=== PATIENT | male | born 1980 ===

== ENCOUNTER 2017-06-02 01:35 | Observation (INO) | payer SELFPAY ==
[2017-06-02 01:49] VITALS: O2SAT 97
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
--- NOTE | 2017-06-02 06:10 | ED PDOC ---
- ECG O2 Sat by Pulse Oximetry: 97 (RA) Medical Decision Making Medical Decision Makin Patient was transferred [place] Dr. Mendoza pending clinical sobriety. See ED-OBS for further documentation Scribe Attestation: Documented by Kranthi Palomares, acting as a scribe for Dr. Jazmine Maldonado. Provider Scribe Attestation: All medical record entries made by the Scribe were at my direction and personally dictated by me. I have reviewed the chart and agree that the record accurately reflects my personal performance of the history, physical exam, medical decision making, and the department course for this patient. I have also personally directed, reviewed, and agree with the discharge instructions and disposition. Disposition - Clinical Impression Clinical Impression: Alcohol intoxication - POA Present On Arrival: None - Disposition Referrals: [facility] [Outside] [facility] [Outside] Disposition Time: 01:58 Condition: STABLE Additional Instructions: follow up with your primary doctor in 1-2 days return to the ED with any worsening or concerning symptoms. patient is cleared for police custody Instructions: Alcohol Intoxication (ED) Forms: [employer] (Occitan) ED OBSERVATION Date of observation admission: 06/02/17 Time of observation admission: 01:58 - Observation admission statement Patient is being placed in observation because:: Pending clinical sobriety - Goals of Observation Goals of observation are:: Clinical sobriety - Progress Note Progress Note: Time: 7:00 --Patient was transferred to [place] Dr. Mendoza Time: 7:51 --Patient awake, alert, oriented x3 with steady gait --Patient is medically stable for discharge to police custody
[2017-06-02 07:20] VITALS: BP 104/60; PULSE 68; RESP 14; TEMP 98.1
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
== END 2017-06-02 07:59 ==
LOC: H.ER 01:35 → H.EROBSV 01:58
PROVIDERS: ADMIT Emergency Medicine; ATTEND Emergency Medicine
DX: F10.129 Alcohol abuse with intoxication, unspecified (principal); Y90.8 Blood alcohol level of 240 mg/100 ml or more; F17.210 Nicotine dependence, cigarettes, uncomplicated
CPT/HCPCS: 70450; 82948; 99284; G0378; G0480

== ENCOUNTER 2017-06-28 04:44 | Emergency (ER) | payer MEDICAID ==
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
--- NOTE | 2017-06-28 06:06 | ED PDOC ---
- ECG Pulse Ox Interpretation: Normal Medical Decision Making Medical Decision Makin Patient signed out to me pending bloodwork and sobriety [address] Patient signed out to Dr. Maldonado pending bloodwork and sobriety Disposition - Clinical Impression Clinical Impression: Polysubstance abuse, Chest wall pain - POA Present On Arrival: None - Disposition Disposition: Transfer of Care Disposition Time: 07:00 Condition: FAIR Patient Signed Over To: Jazmine Maldonado Y Handoff Comments: pending bloodwork and sobriety
--- NOTE | 2017-06-28 07:21 | ED PDOC ---
- Laboratory Results Result Diagrams: 06/28/17 05:08 06/28/17 07:52 - ECG O2 Sat by Pulse Oximetry: 100 Medical Decision Making Medical Decision Makin Patient transferred [place]. Mendoza. Pending sobriety. 1020 Patient's vitals are stable. He is ambulating with steady gait. He is sober and ready for discharge. Disposition Counseled Patient/Family Regarding: Studies Performed, Diagnosis, Need For Followup - Clinical Impression Clinical Impression: Polysubstance abuse, Chest wall pain - POA Present On Arrival: None - Disposition Referrals: [facility] [Outside] [facility] [Outside] Disposition: Routine/Home Disposition Time: 10:00 Condition: IMPROVED Additional Instructions: follow up with your primary doctor in 1-2 days return to the ED With any worsening or concerning symptoms Instructions: Polysubstance Abuse (ED), Chest Wall Pain (ED) Forms: [facility] (Albanian), [facility] ED School/Work Excuse
[2017-06-28 07:23] LABS: BLOOD UREA NITROGEN 11 mg/dl (9-20); CHLORIDE 107 mmol/L (98-107); GFR AFRICAN-AMERICAN > 60; GLUCOSE,RANDOM 124 mg/dL (75-110); POTASSIUM 3.3 MMOL/L (3.6-5.0)
[2017-06-28 07:24] LABS: ALB/GLOB RATIO 1.7 (1.0-2.1); ALT/SGPT 46 U/L (21-72); AST/SGOT 44 U/L (17-59); BILIRUBIN,TOTAL 0.3 mg/dl (0.2-1.3); CALCIUM 9.3 mg/dL (8.4-10.2); CARBON DIOXIDE 20 mmol/L (22-30); TOTAL PROTEIN 6.9 G/DL (6.3-8.2)
[2017-06-28 07:25] LABS: ALKALINE PHOSPHATASE 48 U/L (38-126)
[2017-06-28 07:30] LABS: SODIUM 108 mmol/l (132-148)
[2017-06-28 07:35] LABS: ALCOHOL SERUM 48 mg/dl (0-10)
[2017-06-28] MEDS ORDERED: Sodium Chloride 0.9% 1,000 ML IV STA (07:40)
[2017-06-28 08:16] LABS: BASO % 0.6 % (0.0-2.0); EOS % 0.2 % (0.0-4.0); HEMATOCRIT 42.8 % (35.0-51.0); LYMPH # 2.4 K/uL (1.0-4.3); LYMPH % 28.8 % (20.0-40.0); MEAN CELL VOLUME 92.9 fl (80.0-94.0); MEAN CORPUSCULAR HEMOGLOBIN 31.6 pg (27.0-31.0); MEAN CORPUSCULAR HGB CONC 34.1 g/dL (33.0-37.0); MEAN PLATELET VOLUME 8.3 fl (7.2-11.7); MONO # 0.4 K/uL (0.0-0.8); MONO % 5.4 % (0.0-10.0); NEUT # 5.4 K/uL (1.8-7.0); NRBC % 0.2 % (0.0-0.0); RED CELL DISTRIBUTION WIDTH 12.7 % (11.5-14.5); WHITE BLOOD COUNT 8.4 K/uL (4.8-10.8)
[2017-06-28 08:17] LABS: ALB/GLOB RATIO 1.7 (1.0-2.1); ALKALINE PHOSPHATASE 48 U/L (38-126); ALT/SGPT 45 U/L (21-72); AST/SGOT 41 U/L (17-59); BILIRUBIN,TOTAL 0.5 mg/dl (0.2-1.3); BLOOD UREA NITROGEN 10 mg/dl (9-20); CALCIUM 8.8 mg/dL (8.4-10.2); CARBON DIOXIDE 24 mmol/L (22-30); CHLORIDE 106 mmol/L (98-107); GFR AFRICAN-AMERICAN > 60; GLUCOSE,RANDOM 102 mg/dL (75-110); POTASSIUM 3.9 MMOL/L (3.6-5.0); SODIUM 140 mmol/l (132-148); TOTAL PROTEIN 6.4 G/DL (6.3-8.2)
[2017-06-28 10:39] VITALS: PULSE 59
[2017-06-28 12:56] VITALS: BP 117/71; RESP 15; TEMP 97.8
--- NOTE | 2017-06-28 14:56 | RAD ---
PROCEDURE: CHEST RADIOGRAPH, 1 VIEW HISTORY: ER ORDER COMPARISON: None available. FINDINGS: LUNGS: The lungs are well inflated and clear. PLEURA: No pneumothorax or pleural fluid seen. CARDIOVASCULAR: Normal. OSSEOUS STRUCTURES: No significant abnormalities. VISUALIZED UPPER ABDOMEN: Normal. OTHER FINDINGS: None. IMPRESSION: No active pulmonary disease.
[2017-06-28 16:40] VITALS: O2SAT 100
== END 2017-06-28 12:54 | disposition home or self-care (01) ==
LOC: H.ER 04:44
DX: F19.10 Other psychoactive substance abuse, uncomplicated (principal); R07.89 Other chest pain
CPT/HCPCS: 71010; 80053; 80320; 85025; 99284; J7040

== ENCOUNTER 2019-01-25 00:24 | Emergency (ER) | payer SELFPAY ==
[2019-01-25 00:36] VITALS: RESP 16
[2019-01-25] MEDS ORDERED: Tdap Vaccine 0.5 ml Vial (10-64 yrs) IM ONE ×2 (02:16→03:51)
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
[2019-01-25] MEDS ORDERED: Lidocaine/Epi 1% 1:100000 20 ML IJ ONE (03:04)
[2019-01-25] MEDS ORDERED: Amoxicillin-Clav 875-125 mg Tab PO STA (03:28)
[2019-01-25] MEDS ORDERED: Bacitracin 500 Units/gm Oint Foilpak UD ONE (03:35)
[2019-01-25] MEDS ORDERED: Lidocaine 1% w Epi 1:100,000 Inj ONE (03:52)
[2019-01-25 06:08] VITALS: BP 105/64; PULSE 89; TEMP 99.1; O2SAT 97
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
== END 2019-01-25 06:09 | disposition home or self-care (01) ==
LOC: H.ER 00:24
DX: S00.03XA Contusion of scalp, initial encounter (principal); F10.129 Alcohol abuse with intoxication, unspecified; S01.511A Laceration without foreign body of lip, initial encounter; S00.10XA Contusion of unspecified eyelid and periocular area, initial encounter; H11.30 Conjunctival hemorrhage, unspecified eye; Y04.1XXA Assault by human bite, initial encounter; M54.5 Low back pain; Z23 Encounter for immunization; Y04.0XXA Assault by unarmed brawl or fight, initial encounter